=== PATIENT | male | born 1950 | race Caucasian/White ===

== ENCOUNTER 2023-11-18 18:30 | Emergency (ER) | payer MEDICARE ==
[~2023-11-18] VITALS: Ht 190.5 cm; Wt 103.1 kg
[2023-11-18 20:17] LABS: BASO % 0.3 % (0.0-1.0); EOS # 0.1 10^3/uL (0.0-0.5); EOS % 2.1 % (0.0-3.0); HEMATOCRIT 39.3 % (42.0-52.0); HEMOGLOBIN 13.8 g/dl (13.5-17.5); LYMPH # 1.1 10^3/uL (1.5-5.0); LYMPH % 15.9 % (24.0-44.0); MEAN CORPUSCULAR HGB CONC 35.1 g/dl (32.0-36.5); MEAN CORPUSCULAR VOLUME 96.8 fl (80.0-96.0); MONO # 0.5 10^3/uL (0.0-0.8); MONO % 7.4 % (2.0-8.0); NEUTROPHILS # 4.9 10^3/uL (1.5-8.5); NEUTROPHILS % 73.8 % (36.0-66.0); PLATELET COUNT, AUTOMATED 191 10^3/uL (150-450); RED BLOOD COUNT 4.06 10^6/uL (4.30-6.10); WHITE BLOOD COUNT 6.6 10^3/uL (4.0-10.0)
[2023-11-18] MEDS: ONDANSETRON 4MG 2ML VIAL IV ONE (20:29)
[2023-11-18] MEDS: MORPHINE 2 MG/ML 1ML VIAL IV PRN (20:29)
[2023-11-18 20:37] LABS: INR 1.08; PARTIAL THROMBOPLASTIN TIME 25.9 SECONDS (24.8-34.2); PROTHROMBIN TIME 13.6 SECONDS (12.5-14.5)
[2023-11-18 20:40] LABS: APPEARANCE, URINE CLEAR (CLEAR); BACTERIA, URINE AUTO NEGATIVE (NEGATIVE); BILIRUBIN, URINE AUTO NEGATIVE (NEGATIVE); BLOOD, URINE BLOOD NEGATIVE (NEGATIVE); COLOR, URINE YELLOW (YELLOW); GLUCOSE, URINE (UA) AUTO NEGATIVE (NEGATIVE); KETONE, URINE AUTO TRACE mg/dL (NEGATIVE); LEUKOCYTE ESTERASE, URINE AUTO NEGATIVE (NEGATIVE); MUCUS, URINE SMALL (NEGATIVE); NITRITE, URINE AUTO NEGATIVE (NEGATIVE); PROTEIN, URINE AUTO NEGATIVE (NEGATIVE); RBC, URINE AUTO 1 /HPF (0-3); SQUAMOUS EPITHELIAL CELL UR AU 0 /HPF (0-6); UROBILINOGEN, URINE AUTO 0.2 mg/dL (0.0-2.0); WBC, URINE AUTO 0 /HPF (0-3)
[2023-11-18 20:42] LABS: ETHYL ALCOHOL (ETHANOL) 0.03 % (0.000-0.010)
[2023-11-18 20:44] LABS: ALBUMIN 3.3 G/DL (3.2-5.2); BILIRUBIN,DIRECT 0.1 MG/DL (<0.4); BILIRUBIN,TOTAL 0.4 MG/DL (0.3-1.2); CALCIUM LEVEL 8.8 MG/DL (8.3-10.6); CREATININE FOR GFR 1.44 MG/DL (0.70-1.30); GLOMERULAR FILTRATION RATE 51.5 (>42); TOTAL PROTEIN 5.9 G/DL (5.7-8.2)
[2023-11-18] MEDS ORDERED: ISOVUE-370 76% 100ML VIAL As Ordered ONE (21:01)
[2023-11-18 21:06] LABS: AMPHETAMINES LEVEL URINE NEGATIVE (NEGATIVE); BARBITURATES URINE NEGATIVE (NEGATIVE); BENZODIAZEPINES URINE NEGATIVE (NEGATIVE); CANNABINOIDS URINE NEGATIVE (NEGATIVE); COCAINE METABOLITE URINE NEGATIVE (NEGATIVE); METHADONE URINE NEGATIVE (NEGATIVE); OPIATES URINE NEGATIVE (NEGATIVE); PHENCYCLIDINE URINE NEGATIVE (NEGATIVE)
[2023-11-18] MEDS: MIDAZOLAM INJ 2MG/2ML VIAL IV STA (21:27)
[2023-11-18] MEDS: METOCLOPRAMIDE INJ 10MG/2ML VIAL IV ONE (21:30)
[2023-11-18 22:45] VITALS: TEMP 98.1; O2SAT 100
[2023-11-18 23:00] VITALS: BP 149/73
[2023-11-18] MEDS: ACETAMINOPHEN *IV* 1,000 MG in IV 1 EA IV ONE (23:00)
[2023-11-19] MEDS: NS 1,000 ML IV ONE (00:15)
[2023-11-19] MEDS: LIDOCAINE 2% MDV 20ML VIAL SC ONE (00:52)
[2023-11-19] MEDS: CEPHALEXIN 500 MG CAP PO ONE (01:25)
[2023-11-19] MEDS ORDERED: CEPH500C PO (01:28)
[2023-11-19] MEDS: NEOSPORIN OINT 0.9 GM PKT TOP ONE (01:30)
== END 2023-11-19 02:00 | disposition home or self-care (01) ==
LOC: M ED 18:30
DX: S02.2XXA Fracture of nasal bones, initial encounter for closed fracture (principal); S01.511A Laceration without foreign body of lip, initial encounter; S20.219A Contusion of unspecified front wall of thorax, initial encounter; Y93.9 Activity, unspecified; Y99.9 Unspecified external cause status; V91.83XA Other injury due to other accident to other powered watercraft, initial encounter; F17.210 Nicotine dependence, cigarettes, uncomplicated; F10.10 Alcohol abuse, uncomplicated; Z79.2 Long term (current) use of antibiotics
CPT/HCPCS: 12011; 70450; 70486; 71260; 72125; 72131; 80047; 80048; 80076; 80307; 81001; 82077; 82150; 83605; 83690; 85025; 85610; 85730; 86850; 86900; 86901; 93041; 94760; 96365; 96366; 96372; 96374; 96375; 99285; J0131; J2250; J2405; J2765; Q9967